=== PATIENT | male | born 1985 | race Caucasian/White ===

== ENCOUNTER 2020-12-03 09:15 | Inpatient (IN) | payer OTHER ==
[~2020-12-03] VITALS: Ht 162.6 cm; Wt 47.2 kg
[~2020-12-03 09:15] MED LIST: GLUCOPHAGE1000 MG PO; NEURONTIN300 MG PO; NOVOLIN 70100 UNIT/2 INJ
[2020-12-03 10:56] LABS: HEMOGLOBIN 11.8 gm/dl (14.0-17.5); RED BLOOD COUNT 3.45 M/UL (4.20-5.50); WHITE BLOOD COUNT 17.4 K/UL (4.5-11.0)
[2020-12-03 11:13] LABS: BUN/CREATININE RATIO 20 (0-10)
[2020-12-03] MEDS ORDERED: MUPIROCIN22 GM TOP (14:31)
[2020-12-03] MEDS ORDERED: ZOLOFT50 MG PO (14:32)
[2020-12-04 06:07] LABS: HEMOGLOBIN 10.7 gm/dl (14.0-17.5)
[2020-12-04 06:12] LABS: RED BLOOD COUNT 3.08 M/UL (4.20-5.50); WHITE BLOOD COUNT 11.8 K/UL (4.5-11.0)
[2020-12-04 06:27] LABS: BUN/CREATININE RATIO 18 (0-10)
[2020-12-05 06:05] LABS: WHITE BLOOD COUNT 14.5 K/UL (4.5-11.0)
[2020-12-05 06:13] LABS: HEMOGLOBIN 8.7 gm/dl (14.0-17.5); RED BLOOD COUNT 2.6 M/UL (4.20-5.50)
[2020-12-05 06:35] LABS: BUN/CREATININE RATIO 23 (0-10)
[2020-12-06 06:40] LABS: HEMOGLOBIN 8.7 gm/dl (14.0-17.5); RED BLOOD COUNT 2.57 M/UL (4.20-5.50)
[2020-12-06 07:16] LABS: BUN/CREATININE RATIO 18 (0-10)
[2020-12-06] MEDS ORDERED: ENOXAPARIN40 MG/0.4 SC (09:27)
[2020-12-06] MEDS ORDERED: FERROUS GLUCON324 M1 PO (11:06)
[2020-12-06] MEDS ORDERED: THERAGRAN M TAB1 EA PO (11:06)
== END 2020-12-06 13:26 | disposition home or self-care (01) | DRG 481 ==
LOC: ER1 09:15 → CDU 13:08 → M/S 12-04 03:23
PROVIDERS: Orthopaedic Surgery; Physician Assistant; Physician Assistant Medical; ADMIT Internal Medicine Infectious Disease
PROC: 0QS604Z Reposition Right Upper Femur with Internal Fixation Device, Open Approach (ICD-10-PCS; principal; 2020-12-04 12:39)
DX: S72.141A Displaced intertrochanteric fracture of right femur, initial encounter for closed fracture (principal); D62 Acute posthemorrhagic anemia; Z20.822 Contact with and (suspected) exposure to COVID-19; W18.30XA Fall on same level, unspecified, initial encounter; E66.01 Morbid (severe) obesity due to excess calories; E11.649 Type 2 diabetes mellitus with hypoglycemia without coma; F41.9 Anxiety disorder, unspecified; F12.90 Cannabis use, unspecified, uncomplicated; Y93.89 Activity, other specified; Y92.89 Other specified places as the place of occurrence of the external cause; Y99.8 Other external cause status; Z79.84 Long term (current) use of oral hypoglycemic drugs; Z83.3 Family history of diabetes mellitus
CPT/HCPCS: 36415; 72192; 73502; 73552; 76000; 80048; 80053; 82962; 83036; 83735; 85025; 85027; 85610; 86850; 86900; 86901; 96374; 96375; 97116-GP-CQ; 97161; 97530; 99285; C1713; J0690; J1100; J1170; J1650; J2001; J2270; J2405; J2704; J2710; J3010; J7030; J7120; U0002

== ENCOUNTER 2021-01-13 04:45 | Emergency (ER) | payer OTHER ==
[~2021-01-13 04:45] MED LIST changes: +ENOXAPARIN40 MG/0.4 SC; +FERROUS GLUCON324 M1 PO; +MUPIROCIN22 GM TOP; +THERAGRAN M TAB1 EA PO; +ZOLOFT50 MG PO
[2021-01-13 05:40] LABS: HEMOGLOBIN 9.8 gm/dl (14.0-17.5); RED BLOOD COUNT 3.06 M/UL (4.20-5.50)
[2021-01-13 05:56] LABS: BUN/CREATININE RATIO 16 (0-10)
== END 2021-01-13 08:09 | disposition home or self-care (01) ==
LOC: ER1 04:45
PROVIDERS: Physician Assistant
DX: E11.65 Type 2 diabetes mellitus with hyperglycemia (principal); Z79.4 Long term (current) use of insulin; F17.210 Nicotine dependence, cigarettes, uncomplicated
CPT/HCPCS: 80053; 82962; 85025; 99285